=== PATIENT | male | born 1945 | race Hispanic/Latino ===

== ENCOUNTER 2020-05-29 12:35 | Inpatient (IN) | payer MEDICARE, OTHER ==
[2020-05-29 13:20] LABS: #Basophils 0.1 thou/uL (0.0-0.2); #Eosinphils 0.1 thou/uL (0.0-0.7); #Lymphocytes 1.8 thou/uL (1.20-3.40); #Neutrophils 12.1 thou/uL (1.40-6.50); %Basophils 0.6 % (0.0-1.0); %Eosinophils 0.5 % (0.0-10.0); %Lymphocytes 11.6 % (21.0-51.0); %Monocytes 6.9 % (0.0-10.0); %Neutrophils 80.4 % (42.0-75.0); Hemoglobin 15.6 g/dL (14.0-18.0); Mean Corpuscular HGB CONC 33.7 g/dL (32.0-36.0); Mean Corpuscular Hemoglobin 33.1 pg (27.0-31.0); Mean Corpuscular Volume 98.2 fL (78.0-98.0); RBC Distribution Width 15.2 % (11.5-14.5); Red Blood Cell (RBC) Count 4.71 mill/uL (4.70-6.10); White Blood Cell (WBC) Count 15.1 thou/uL (4.8-10.8)
[2020-05-29 13:36] LABS: ALT (SGPT) 47 U/L (8-55); AST (SGOT) 54 U/L (5-34); Albumin 4.4 g/dL (3.4-4.8); Alkaline Phosphatase 185 U/L (40-110); Anion Gap 25 mmol/L (10-20); BUN (Urea Nitrogen) 57 mg/dL (8.4-25.7); Bilirubin, Total 0.6 mg/dL (0.2-1.2); CK (CPK) 2046 U/L (30-200); Calc. Creatinine Clearance 0 mL/min (70-130); Calcium 9.6 mg/dL (7.8-10.44); Carbon Dioxide 19 mmol/L (23-31); Chloride 96 mmol/L (98-107); Estimated GFR-MDRD 6; Globulin 3.2 g/dL (2.4-3.5); Glucose 125 mg/dL (83-110); Potassium 4.3 mmol/L (3.5-5.1); Protein, Total 7.6 g/dL (5.8-8.1); Sodium 136 mmol/L (136-145)
--- NOTE | 2020-05-29 13:38 | RAD ---
PORTABLE CHEST: Date: 05/29/2020 PROVIDED CLINICAL HISTORY: Hypotension. FINDINGS: Comparison with 01/19/2020. Cardiac and mediastinal silhouette is within normal limits. No focal consolidation, pleural fluid, or pneumothorax apparent. Right IJ hemodialysis catheter is again demonstrated in similar position. IMPRESSION: No evidence for acute cardiopulmonary process. POS: [facility]
[2020-05-29 13:41] LABS: Anisocytosis SLIGHT = 6-15 cells (100X) (0-5/hpf); MDiff Complete? YES; Mean Platelet Volume 10.3 fL (7.4-10.4); Ovalocytes SLIGHT = 2-5 cells (100X) (0-1/hpf); Platelet Count 118 thou/uL (130-400); Platelet Morphology Comment Appears Decreased
--- NOTE | 2020-05-29 13:43 | RAD ---
TWO VIEWS LEFT SHOULDER: 05/29/20 PROVIDED CLINICAL HISTORY: Fall. FINDINGS: No evidence for fracture or other acute osseous abnormality. Narrowing of the subacromial space may r eflect rotator cuff insufficiency. Visualized left lung field appears clear. Acromioclavicular joint degenerative changes are seen. IMPRESSION: No evidence for an acute osseous abnormality. If there is persistent clinical concern, conservative m anagement and follow-up imaging are advised. POS: [facility]
--- NOTE | 2020-05-29 13:45 | CT ---
CT OF BRAIN PERFORMED WITHOUT CONTRAST ENHANCEMENT: 05/29/20 HISTORY: Head injury. Patient was found by nurse on floor. COMPARISON: 01/26/20 exam. There is moderate atrophy present. There is prominent decreased attenuation of the periventricular wh ite matter consistent with chronic ischemic white matter change. There are no signs of intracerebral hemorrhage or extra-axial fluid collections. Mastoid air cells and visualized sinuses appear clear. IMPRESSION: No acute intracranial abnormalities. POS: [facility]
[2020-05-29 14:00] LABS: CKMB 37.4 ng/mL (0-6.6)
[2020-05-29] MEDS ORDERED: Aspirin Chewable 81 MG TAB ONE (14:19)
[2020-05-29] MEDS ORDERED: Morphine 2 MG/ML SYRINGE SLOW IVP PRN (16:40)
[2020-05-29] MEDS ORDERED: Morphine 2 MG/ML SYRINGE ONE (16:48)
[2020-05-29 17:12] LABS: Troponin I 0.112 ng/mL (< 0.028)
[2020-05-29 17:13] VITALS: BMI 23.3
[2020-05-29] MEDS ORDERED: Acetaminophen 650 MG Suppository PR PRN (17:20)
[2020-05-29 19:17] LABS: Magnesium 2.2 mg/dL (1.6-2.6); Phosphorus 7.8 mg/dL (2.3-4.7)
[2020-05-29 19:51] LABS: CKMB 40.7 ng/mL (0-6.6)
[2020-05-29] MEDS ORDERED: Dextrose 5% in Water 1,000 ML IV PRN (20:01)
[2020-05-29] MEDS ORDERED: HumaLOG 300 UNITS/3 ML VIAL SC PRN ×2 (20:01)
[2020-05-29] MEDS ORDERED: Dextrose 50% Abboject 50 ML SYRINGE SLOW IVP PRN (20:01)
[2020-05-29 20:35] LABS: Troponin I 0.109 ng/mL (< 0.028)
--- NOTE | 2020-05-29 21:29 | HP ---
TIME OF ASSESSMENT: 1600 hours. CHIEF COMPLAINT: Syncope. HISTORY OF PRESENT ILLNESS: Information obtained from ED report and limited information obtained from the patient as he does have a history of dementia. Mr. Rizvi is a 74-year-old gentleman, who presents to the emergency department after having a fainting episode. The patient states that it happened at sometime this morning and was not witnessed and he believes he had lost consciousness for approximately 4 hours. When he came to, he is able to call for help. The patient denies any preceding symptoms that he can remember. He states he does not have much recollection of events prior to fainting. He recalls waking up on the floor on his back. He denies feeling unwell in the last several days. He was due to have dialysis today, however, missed dialysis this morning. He was brought by EMS and per ED reports, was found by his home health nurse. The patient states he was unable to get up and apparently had discomfort in the left shoulder. He therefore underwent an x-ray of the left shoulder, which showed no evidence for any acute abnormality. In the ED, he had an EKG done, which showed normal sinus rhythm with a heart rate of 74. There were questionable ST changes involving the inferior leads as well as V3 through V6. A repeat EKG was done and showed normal sinus rhythm with a heart rate of 92. There were changes consistent with early repolarization. No acute changes. He had a chest x-ray done, which showed no acute cardiopulmonary process. CT of the head was done as well showing no acute intracranial abnormalities. Laboratory studies done in the emergency department were notable for a white count of 15.1, hemoglobin 15.6, hematocrit 46.2, platelets 118, neutrophils 80.4. Sodium 136, potassium 4.3, BUN 57, creatinine 8.37, GFR 6, calcium 9.6, phosphorus 7.8, magnesium 2.2, total bilirubin 0.6, AST 54, ALT 47, alkaline phosphatase 185, CK 2046, CK-MB was 37.4, troponin I 0.093, BNP 21.5. The patient is being admitted for rhabdomyolysis and syncope workup as well as workup of the indeterminate troponin. REVIEW OF SYSTEMS: He denies again having any fevers, chills, or sweats. Denies any abdominal pain or cramping. Reports having regular bowel movements and denies any urinary symptoms. He states though he has end-stage renal disease, he does still make little urine and has not noted any changes. Denies hematuria. No chest pain, palpitations, or shortness of breath. All other review of systems are negative. PAST MEDICAL HISTORY: 1. CHF. 2. Type 2 diabetes mellitus. 3. Hypothyroidism. 4. BPH. 5. Hyperlipidemia. 6. Hypertension. 7. Dementia. 8. End-stage renal disease, on hemodialysis Monday, Monday, Monday. 9. Anxiety. 10. Depression. PAST SURGICAL HISTORY: . SOCIAL HISTORY: The patient denies any tobacco use, alcohol consumption, or illicit drug use. ALLERGIES: NO KNOWN DRUG ALLERGIES. CURRENT MEDICATIONS: 1. Trazodone. 2. Lipitor. 3. Pramipexole. 4. Lorazepam. 5. Coreg. 6. Vitamin D3. 7. Tamsulosin. 8. Bupropion HCL. 9. Hydralazine. 10. Losartan. 11. Memantine. 12. Nifedipine. PHYSICAL EXAMINATION: GENERAL: The patient is resting comfortably on the stretcher. He is in no acute distress. The patient did experience what looked like chills during the examination. VITAL SIGNS: Temperature 98.2, pulse 90, blood pressure 115/77, respirations 21, and O2 saturation 97% on room air. HEENT: Normocephalic and atraumatic. Pupils are equal, round, and reactive to light. Sclerae without icterus. Oropharynx is clear. NECK: Supple. LUNGS: Clear to auscultation bilaterally without any wheezes, rales, or rhonchi. CARDIAC: Regular rate and rhythm. ABDOMEN: Soft, nontender, nondistended. Normoactive bowel sounds present. No guarding or rigidity. No renal angle tenderness. EXTREMITIES: Peripheral pulses strong and equal bilaterally. No evidence of edema. No calf tenderness. SKIN: Warm and dry. NEUROLOGIC: Alert and oriented x2. Speech is normal. No neuro deficits on exam. Extraocular movements intact. Facial sensation and movements intact. No extremity weakness or numbness. INVESTIGATIONS: As mentioned above in HPI. IMPRESSION AND PLAN: Mr. Rizvi is a 74-year-old gentleman, who was brought into the emergency department after being found by the home health nurse on the ground. The patient states he had a syncopal episode at some time this morning. He missed dialysis due to this. He denies having any complaints at this time; however, he does have known dementia, therefore not a reliable historian. He is being admitted for management of the following; 1. Rhabdomyolysis. The patient had a CK of 2045. He is a dialysis patient; therefore, has received 1 L of normal saline only. We will recheck CK with morning labs. Further fluid administration to be determined by Nephrology. 2. Left shoulder pain. The patient denies having any pain at this present time. X-ray done is unremarkable. 3. Chills. He did experience chills during his examination, but again denies having any complaints. We will go ahead and obtain urinalysis. Chest x-ray was unremarkable. We will also obtain testing for COVID as discussed with Dr. Garcia. 4. Elevated troponin. Likely associated with his end-stage renal disease. No previous to compare to. We will continue to trend troponins and he will remain on cardiac monitoring. 5. Syncope. We will obtain an echo, carotid Dopplers and orthostatic blood pressures. 6. End-stage renal disease, on hemodialysis. Again, the patient missed dialysis earlier today. Dr. Gacria has discussed the case with Dr. Cedillo, who will arrange dialysis for the patient. Consultation was placed. 7. Hypertension. Monitor blood pressure. We will hold antihypertensives for now given blood pressures on the low side. 8. Type 2 diabetes mellitus. Monitor blood glucose and initiate sliding scale. Obtain bedside screening for dysphagia before clearing him for meals to ensure the patient is not at risk for aspiration. 9. Hypothyroidism. We will check TSH. Reconcile home medications once verified. 10. Dementia. We will resume memantine, which he takes at home. 11. Gastrointestinal prophylaxis. We will start him on famotidine. 12. Deep venous thrombosis prophylaxis. Mechanical SCDs. 13. Code status: Unable to discuss at this time. Medical power of real estate associate attorney, unknown. The patient's case was discussed with Dr. Garcia, who agrees with the plan of care as described above. Job ID: [id number]
[2020-05-29] MEDS: Sodium Chloride 0.9% 1,000 ML IV SCH (23:31)
--- NOTE | 2020-05-29 23:50 | ULT ---
BILATERAL CAROTID DUPLEX ULTRASOUND: HISTORY: Syncope TECHNIQUE: Grayscale, color-flow and spectral Doppler ultrasound imaging of the extracranial carotid artery syst ems was performed bilaterally. FINDINGS: Minimal atherosclerotic calcic lesions are seen in the region of the carotid bulbs. There is a soft a therosclerotic plaque seen in the distal left common carotid artery. There is no hemodynamically significant stenosis in the bilateral internal carotid arteries according to the peak systolic velocities and the ICA/CCA ratios. The peak systolic velocity in the right ICA measures 33.3 cm/s. The peak systolic velocity in the left ICA measures 39.4 cm/s. The right IC A/CCA ratio is 0.62, and the left ICA/CCA ratio is 0.37. Vertebral arteries: Antegrade flow is demonstrated in the vertebral arteries bilaterally. IMPRESSION: No hemodynamically significant stenosis in the bilateral internal carotid arteries. Prominent soft atherosclerotic plaque in the distal left common carotid artery.
[2020-05-30 05:23] LABS: #Basophils 0.1 thou/uL (0.0-0.2); #Eosinphils 0.3 thou/uL (0.0-0.7); #Lymphocytes 1.3 thou/uL (1.20-3.40); #Monocytes 0.7 thou/uL (0.11-0.59); #Neutrophils 7.6 thou/uL (1.40-6.50); %Basophils 0.7 % (0.0-1.0); %Eosinophils 2.7 % (0.0-10.0); %Lymphocytes 12.8 % (21.0-51.0); %Monocytes 7.3 % (0.0-10.0); %Neutrophils 76.5 % (42.0-75.0); Mean Corpuscular HGB CONC 32.1 g/dL (32.0-36.0); Mean Corpuscular Hemoglobin 31.4 pg (27.0-31.0); Mean Corpuscular Volume 97.7 fL (78.0-98.0); Mean Platelet Volume 10.2 fL (7.4-10.4); Platelet Count 112 thou/uL (130-400); RBC Distribution Width 15.2 % (11.5-14.5); Red Blood Cell (RBC) Count 4.47 mill/uL (4.70-6.10); White Blood Cell (WBC) Count 9.9 thou/uL (4.8-10.8)
[2020-05-30 05:50] LABS: Albumin 3.8 g/dL (3.4-4.8); Anion Gap 22 mmol/L (10-20); BUN (Urea Nitrogen) 66 mg/dL (8.4-25.7); BUN/Creatinine Ratio 7.07; CK (CPK) 914 U/L (30-200); Calc. Creatinine Clearance 6 mL/min (70-130); Calcium 8.8 mg/dL (7.8-10.44); Carbon Dioxide 20 mmol/L (23-31); Chloride 97 mmol/L (98-107); Estimated GFR-MDRD 6; Glucose 111 mg/dL (83-110); Phosphorus 8.1 mg/dL (2.3-4.7); Potassium 4.5 mmol/L (3.5-5.1); Sodium 134 mmol/L (136-145)
--- NOTE | 2020-05-30 05:59 | CON ---
DATE OF CONSULTATION: 05/29/2020 SERVICE: Nephrology. REASON FOR CONSULTATION: End-stage renal disease management. REQUESTING PHYSICIAN: Dr. Garcia. CHIEF COMPLAINT: Syncope and collapse. HISTORY OF PRESENT ILLNESS: A 74-year-old male with known history of diabetes, hypertension, end-stage renal disease, on hemodialysis, Monday, Monday, and Monday, who was brought in by EMS after he was found on the floor of his house by home health nurse. The patient reportedly had a fall, but he was unable to provide much significant history. He has no memory of event leading up to the fall. He reported poor oral intake in the last several days. Home health nurse reportedly found the patient on the floor of his house and he was unable to get up. When EMS arrived, the patient was found to be hypotensive with systolic blood pressure in the 80s. He was treated with fluids and was subsequently brought to the ER, where initial systolic blood pressure was around 100-110, and later improved to 120s to 140s. The patient complained of left shoulder pain, but denied nausea, vomiting, diarrhea, chest pain, or shortness of breath. He also denied dysuria. He also denied abdominal pain, fever, or chills. The patient does not make urine anymore. The patient's regular bricklayer's assistant is Dr. Trinidad of [facility], and the patient dialyzes regularly at [facility]. He reports feeling better. He denied focal weakness, headache, or inability to move any body part. PAST MEDICAL HISTORY: 1. Chronic congestive heart failure. 2. Hypothyroidism. 3. Dementia. 4. Anxiety and depression. 5. End-stage renal disease, on hemodialysis. 6. Type 2 diabetes mellitus. 7. BPH. 8. Hyperlipidemia. 9. Hypertension. PAST SURGICAL HISTORY: Could not be obtained due to the patient's condition. FAMILY HISTORY: Unable to obtain due to the patient's condition. SOCIAL HISTORY: The patient lives with nephew. He is a former chronic alcohol user, but is currently sober. He denied any recreational drug use. He is a former smoker. ALLERGIES: NO KNOWN DRUG ALLERGIES REPORTED. HOME MEDICATIONS: 1. Trazodone. 2. Lipitor. 3. Pramipexole. 4. Lorazepam. 5. Coreg. 6. Vitamin D3. 7. Tamsulosin. 8. Bupropion. 9. Hydralazine. 10. Losartan. 11. Memantine. 12. Nifedipine. REVIEW OF SYSTEMS: This is grossly limited due to the patient's condition. However, the patient denied chest pain, fever, or shortness of breath. Other pertinent positives and negatives were included in the history of present illness. Otherwise, review of system was negative. PHYSICAL EXAMINATION: VITAL SIGNS: Temperature is 98.2, pulse 90, respiratory rate 21, SpO2 97% on room air, blood pressure is 115/77. GENERAL: Fatigued elderly male, in no obvious distress. Afebrile. Anicteric. Acyanotic. HEENT: Normocephalic, atraumatic. Oral mucosa is moist. Pupils are reacting to light. NECK: Supple with no JVD. CARDIOVASCULAR: Regular rhythm and rate with normal heart sounds 1 and 2. RESPIRATORY: Good air entry bilaterally with no crackle or rhonchi or use of accessory muscles. GI: Abdomen is full, soft, nontender, nondistended with normal bowel sounds. MUSCULOSKELETAL/EXTREMITIES: Grossly normal looking, atraumatic with no obvious edema or erythema. SKIN: Warm and dry with no obvious rash or erythema. CEMENT SIDE LASTER: Conscious and alert. Oriented x2 at least. Memory lapse is noted. Cranial nerves 2 through 12 are grossly intact. The patient moves all extremities, but weakly. DIAGNOSTIC DATA: CBC showed WBC count of 15.1, hemoglobin of 15.6, MCV of 98.2, platelet of 118. Chemistry showed sodium 136, potassium 4.3, chloride 96, CO2 19, BUN 57, creatinine 8.37, glucose 125, calcium 9.6, total bilirubin 0.6, AST 54, ALT 47, alkaline phosphatase 185, total protein 7.6, albumin 12.4. Initial cardiac markers showed CK 2046, CK-MB 37.4, and troponin 0.093. Serial troponin showed a slowly trending up troponin level, from initial level of 0.093 to a peak of 0.112. Phosphorus is 7.8 and magnesium is 2.2. Left shoulder x-ray showed no evidence of acute osseous abnormality. Chest x-ray showed cardiac and mediastinal silhouettes within normal limits with no focal consolidation, pleural effusion, or pneumothorax. Right IJ hemodialysis catheter noted. CT scan of the brain showed moderate atrophy as well as prominent decreased attenuation of the periventricular white matter consistent with chronic ischemic white matter change. There are no signs of intracerebral hemorrhage and/or extra-axial fluid collection. ASSESSMENT: 1. End-stage renal disease, on hemodialysis, Monday, Monday, Monday. Last hemodialysis was on May 27, two days ago. 2. Volume status: The patient is euvolemic, if not clinically dry. 3. Metabolic acidosis: Due to end-stage renal disease. 4. Electrolytes: Acceptable with potassium of 4.3. 5. Rhabdomyolysis: Due to fall and lying down on same place. CPK is 2046. 6. Elevated troponin: Most likely, related to rhabdomyolysis. Cardiac anomaly cannot be ruled out, however. The patient also denied chest pain. 7. Presumed syncope and collapse. The patient was on the floor and had no idea as to how he was on the floor. 8. Transient hypotension: The patient is on several antihypertensives. Orthostatic hypotension is a concern. PLAN: 1. We will hold all antihypertensives. 2. Agree with gentle IV hydration. 3. We will plan on dialyzing the patient in the morning to allow time for hemodynamics to stabilize. 4. We will also get orthostatic vitals. 5. Further treatment to follow depending on hospital course. Many thanks for involving us in the care of this patient. We will follow along with you. Job ID: [id number]
[2020-05-30] MEDS: Sevelamer Carbonate 800 MG TAB PO SCH ×3 (07:30→19:08)
[2020-05-30] MEDS: Aspirin 81 mg Enteric Coated Tablet PO SCH (07:31)
[2020-05-30] MEDS: Megestrol Acetate 800 MG/20 ML UDCUP PO SCH (07:31)
[2020-05-30] MEDS ORDERED: Heparin 10,000 UNITS/ 10 ML VIAL ONE (11:14)
[2020-05-30] MEDS: Lorazepam 0.5 MG TAB PO PRN (11:22)
--- NOTE | 2020-05-30 12:01 | PRG ---
DATE OF SERVICE: 05/30/2020 SERVICE: Nephrology. SUBJECTIVE: A 74-year-old being followed for end-stage renal disease management. The patient was admitted after he was found on the floor of his home by the home health nurse. The patient reportedly fell and was unable to get up. No new problem. Still complaining of poor appetite. The patient has remained afebrile. Denied nausea or vomiting. OBJECTIVE: VITAL SIGNS: Temperature 99, pulse 94, respiratory rate 16, SpO2 of 96% on room air, blood pressure is 142/78. GENERAL: Fatigued elderly male, in no distress. Afebrile. Anicteric. Acyanotic. HEENT: Normocephalic and atraumatic. Oral mucosa is moist. CARDIOVASCULAR: Regular rhythm and rate. Normal heart sounds one and two. RESPIRATORY: Fair air entry bilaterally. No obvious crackle or rhonchi. GI: Flat, soft, nontender, nondistended with normal bowel sounds. EXTREMITIES: Grossly normal looking with no obvious edema or erythema. IC DESIGNER CUSTOM: Conscious and alert, oriented to person at least. Some memory lapses noted. Moves all extremities. Cranial nerves 2 through 12 are grossly intact. DIAGNOSTIC DATA: CBC showed WBC count of 9.9, hemoglobin of 14, MCV of 97.7, platelets of 112. Chemistry showed sodium 134, potassium 4.5, chloride 97, CO2 of 20, BUN 66, creatinine 9.33, glucose 111, calcium 8.8, phosphorus 8.1, alkaline phosphatase 9.4, albumin 3.8. ASSESSMENT: 1. End-stage renal disease, on hemodialysis, Monday, Monday, Monday. Last hemodialysis was on May 27, 2020. The patient was supposed to have dialysis yesterday that was held due to hemodynamic instability. We will dialyze the patient today with 3K bath. 2. Hyperphosphatemia: We will start phosphate binder. 3. Presumed syncope and collapse. The patient initially had hypotension. We will continue to hold antihypertensives for now. 4. Rhabdomyolysis: Due to trauma/fall. CPK levels are down with a normal saline. 5. Poor appetite: We will start Megace. 6. Other treatment as per primary attending. Further treatment to follow depending on hospital course. Hemodialysis Procedure Note. Seen and evaluated during hemodialysis. Tolerating treatment well. Dialysis order; HD for 3 hours, 3K bath, Hco3 37, Na 137, UF as tolerated. Job ID: [id number] MTDD
[2020-05-30 12:28] LABS: SARS-CoV-2 MS2 Positive; SARS-CoV-2 N Gene Negative; SARS-CoV-2 S Gene Negative; SARS-CoV-2 orf1ab Negative
--- NOTE | 2020-05-30 14:24 | PDOC.HOSPP ---
- Subjective Encounter Date: 05/30/20 Encounter Time: 14:22 Subjective: Mr. Rizvi was seen today in follow-up of syncope. He does not have any complaints. He says he does not remember the events of last yesterday. - Objective Vital Signs & Weight: Vital Signs (12 hours) Temp Pulse Resp BP Pulse Ox 05/30/20 11:41 99.4 F 95 20 134/74 95 05/30/20 07:55 99 F 94 16 142/78 H 96 05/30/20 02:51 97.6 F 99 18 114/62 100 Weight Weight 143 lb 4 oz I&O: 05/29/20 05/30/20 05/31/20 06:59 06:59 06:59 Intake Total 1180 Output Total 0 Balance 1180 Result Diagrams: 05/30/20 04:55 05/30/20 04:55 Additional Labs: Accuchecks 05/30/20 05/30/20 05/29/20 11:39 03:06 23:32 POC Glucose 127 H 92 84 Hospitalist ROS - Medication Medications: Active Medications Generic Name Dose Route Start Last Admin Trade Name Freq PRN Reason Stop Dose Admin Aspirin 81 mg 05/30/20 09:00 05/30/20 07:31 Ecotrin PO 81 mg DAILY DC Administration Lorazepam 1 mg 05/30/20 11:12 05/30/20 11:22 Ativan PO 1 mg BIDPRN PRN Administration Anxiety Megestrol Acetate 400 mg 05/30/20 09:00 05/30/20 07:31 Megace PO 400 mg DAILY DC Administration Morphine Sulfate 2 mg 05/29/20 16:40 05/29/20 16:50 Morphine SLOW IVP 2 mg Q4H PRN Administration Moderate Pain (4-6) Pantoprazole Sodium 40 mg 05/30/20 09:00 05/30/20 07:30 Protonix PO 40 mg DAILY DC Administration Sevelamer Carbonate 800 mg 05/30/20 08:00 05/30/20 13:00 Renvela PO 800 mg TID-WM DC Administration - Exam Eye: PERRL Heart: RRR, no murmur, no gallops, no rubs, normal peripheral pulses Respiratory: CTAB, no wheezes, no rales, no ronchi, normal chest expansion, no tachypnea Gastrointestinal: soft, non-tender, non-distended, normal bowel sounds, no palpable masses Extremities: no cyanosis, no edema Hosp A/P (1) Syncope Code(s): R55 - SYNCOPE AND COLLAPSE Status: Acute (2) End stage renal disease on dialysis Code(s): N18.6 - END STAGE RENAL DISEASE; Z99.2 - DEPENDENCE ON RENAL DIALYSIS Status: Acute (3) Diabetes mellitus type 2 in nonobese Code(s): E11.9 - TYPE 2 DIABETES MELLITUS WITHOUT COMPLICATIONS Status: Chronic (4) Hypertension Code(s): I10 - ESSENTIAL (PRIMARY) HYPERTENSION Status: Chronic - Plan * Syncope- ? etiology- may have been due to dehydration- patient had received some fluids, prior to orthostatic blood pressures were taken. * Still await Echo results * HTN- blood pressure is stable * DM-blood glucose is stable * He likely will need a stress test to rule out potential ischemic heart disease as a possibility- will order for tomorrow. If this is negative, then may need event monitor and possibly Neurological work-up as well. ( however this can be done outpatient). * COVID screen was negative. He denies having any known exposures to COVID-19, denies having any family members infected with COVID-19, nor does he have any symptoms attributed to it. Will discontinue isolation. He could be false negative and asymptomatic.
[2020-05-30] MEDS: Sodium Chloride 0.9% 1,000 ML IV SCH (14:38)
[2020-05-30 15:24] LABS: Blood, Urine Large (Negative); Glucose, Urine (Dipstick) Negative (Negative); Leukocyte Large (Negative); Specific Gravity, Urine 1.015 (1.005-1.030); pH, Urine 6.5 (5.0-9.0)
[2020-05-30 15:25] LABS: Bilirubin Unable to Interpret (Negative); Clarity Cloudy (Clear); Ketone, Urine Unable to Interpret mg/dL (Negative); Nitrite Unable to Interpret (Negative); Protein, Urine (Dipstick) Unable to Interpret mg/dL (Neg-Trace); Urobilinogen UNABLE TO INTERPRET mg/dL (Less than 2)
[2020-05-30 15:27] LABS: Bacteria/HPF 2+ HPF (None Seen); RBC/HPF Greater than 50 HPF (0-3); Squamous Epithelial None Seen HPF (0-3); WBC/HPF Greater than 50 HPF (0-3)
[2020-05-30 15:28] LABS: Urine Culture Reflex Yes Yes
[2020-05-30] MEDS: Pramipexole Di-HCl 0.25 MG TAB PO SCH (20:32)
[2020-05-30] MEDS: traMADol HCl 50 MG TAB PO PRN (20:32)
[2020-05-31] MEDS: Lorazepam 0.5 MG TAB PO PRN ×2 (00:15→13:58)
[2020-05-31] MEDS: Acetaminophen 325 MG TAB PO PRN ×3 (03:30→20:29)
[2020-05-31 04:35] LABS: #Eosinphils 0.3 thou/uL (0.0-0.7); #Lymphocytes 1.5 thou/uL (1.20-3.40); #Monocytes 0.6 thou/uL (0.11-0.59); #Neutrophils 6.2 thou/uL (1.40-6.50); %Basophils 0.5 % (0.0-1.0); %Eosinophils 3.3 % (0.0-10.0); %Monocytes 7.3 % (0.0-10.0); %Neutrophils 71.9 % (42.0-75.0); Hemoglobin 13.8 g/dL (14.0-18.0); Mean Corpuscular HGB CONC 33.5 g/dL (32.0-36.0); Mean Corpuscular Hemoglobin 32.3 pg (27.0-31.0); Mean Corpuscular Volume 96.4 fL (78.0-98.0); Platelet Count 113 thou/uL (130-400); Red Blood Cell (RBC) Count 4.28 mill/uL (4.70-6.10); White Blood Cell (WBC) Count 8.6 thou/uL (4.8-10.8)
[2020-05-31 04:43] LABS: Anion Gap 18 mmol/L (10-20); BUN (Urea Nitrogen) 36 mg/dL (8.4-25.7); Calc. Creatinine Clearance 9 mL/min (70-130); Calcium 9.2 mg/dL (7.8-10.44); Carbon Dioxide 23 mmol/L (23-31); Chloride 98 mmol/L (98-107); Estimated GFR-MDRD 9; Glucose 91 mg/dL (83-110); Potassium 3.5 mmol/L (3.5-5.1); Sodium 135 mmol/L (136-145)
--- NOTE | 2020-05-31 11:17 | PRG ---
DATE OF SERVICE: 05/31/2020 SERVICE: Nephrology. SUBJECTIVE: A 74-year-old male with end-stage renal disease, on hemodialysis, admitted after he was found on the floor after a presumed syncope and collapse. Had dialysis yesterday, which was well tolerated. No new problem. Oral intake is improved. OBJECTIVE: VITAL SIGNS: Temperature 98.1, pulse 77, respiratory rate 18, SpO2 of 96% on room air, and blood pressure 161/84. GENERAL: Comfortable elderly male, in no obvious distress. Fatigued, but afebrile. HEENT: Normocephalic, atraumatic. Oral mucosa is moist. CARDIOVASCULAR: Regular rhythm and rate with normal heart sounds 1 and 2. RESPIRATORY: Fair air entry bilaterally with no obvious crackle or rhonchi or use of accessory muscles. GI: Full, soft, nontender, nondistended with normal bowel sounds. EXTREMITIES: Grossly normal looking, atraumatic with no obvious edema or erythema. MISSILE PAD MECHANIC: Conscious and awake. Oriented to person and place at least. Cranial nerves II through XII are grossly intact. The patient moves all extremities. Memory lapses noted. DIAGNOSTIC DATA: CBC showed WBC count of 8.6, hemoglobin of 13.8, platelets of 113. Chemistry showed sodium 135, potassium 3.5, chloride 98, CO2 of 23, BUN 36, creatinine 6.39, glucose 91, and calcium 9.2. ASSESSMENT: 1. End-stage renal disease, on hemodialysis. Last dialysis was yesterday, April 30. We will plan on dialyzing the patient tomorrow in line with outpatient dialysis schedule. 2. Rhabdomyolysis: Related to fall. CPK is down to 9000 yesterday. Expected to have gone down even further after dialysis. 3. Hypertension: Blood pressure is currently well controlled. Due to syncope, antihypertensives were held. We will monitor blood pressure closely. 4. Poor appetite. Oral intake and appetite are improving with Megace. 5. Syncope and collapse: Evaluation as per primary attending. Job ID: [id number]
[2020-05-31] MEDS ORDERED: ADENOSINE 60 MG/20 ML VIAL ONE (11:24)
[2020-05-31] MEDS: Aspirin 81 mg Enteric Coated Tablet PO SCH (11:36)
[2020-05-31] MEDS: Sevelamer Carbonate 800 MG TAB PO SCH ×4 (11:36→18:10)
[2020-05-31] MEDS: Megestrol Acetate 800 MG/20 ML UDCUP PO SCH (11:36)
[2020-05-31] MEDS: traMADol HCl 50 MG TAB PO PRN (13:55)
--- NOTE | 2020-05-31 14:30 | NM ---
NUCLEAR MEDICINE MYOCARDIAL PERFUSION SCAN: History: Syncope, dyslipidemia, diabetes, end stage renal disease. The examination was performed using 30.4 mCi Technetium 99M Sestamibi on stress and 9.1 mCi Technetiu m 99M Sestamibi on the resting images. FINDINGS: This shows some minimal thinning in the inferior wall which is unchanged between the stress and rest views. WALL MOTION: Symmetric contractility to the ventricle. LEFT VENTRICULAR EJECTION FRACTION: 56% IMPRESSION: No evidence of ischemic change. Questionable area of some mild scarring to the inferior wall. POS: [facility]
--- NOTE | 2020-05-31 14:33 | PDOC.HOSPP ---
- Subjective Encounter Date: 05/31/20 Encounter Time: 14:32 Subjective: Mr. Rizvi was seen today in for syncope. His only complaint is that of back pain. He says this is chronic and he has had surgery in the past. He says he takes Lortab at home for this. - Objective Vital Signs & Weight: Vital Signs (12 hours) Temp Pulse Resp BP BP BP Pulse Ox 05/31/20 12:00 98.0 F 78 18 156/86 H 98 05/31/20 08:00 98.1 F 77 18 161/84 H 96 05/31/20 03:25 98.6 F 99 16 137/82 96 Weight Weight 142 lb 12.8 oz I&O: 05/30/20 05/31/20 06/01/20 06:59 06:59 06:59 Intake Total 1180 120 Output Total 0 50 Balance 1180 70 Result Diagrams: 05/31/20 04:04 05/31/20 04:04 Additional Labs: Accuchecks 05/31/20 05/31/20 05/30/20 11:17 05:41 21:39 POC Glucose 139 H 101 102 Hospitalist ROS - Medication Medications: Active Medications Generic Name Dose Route Start Last Admin Trade Name Freq PRN Reason Stop Dose Admin Acetaminophen 650 mg 05/29/20 17:20 05/31/20 10:20 Tylenol PO 650 mg Q4H PRN Administration Headache/Fever/Mild Pain (1-3) Aspirin 81 mg 05/30/20 09:00 05/31/20 11:36 Ecotrin PO 81 mg DAILY DC Administration Lorazepam 1 mg 05/30/20 11:12 05/31/20 13:58 Ativan PO 1 mg BIDPRN PRN Administration Anxiety Megestrol Acetate 400 mg 05/30/20 09:00 05/31/20 11:36 Megace PO 400 mg DAILY DC Administration Morphine Sulfate 2 mg 05/29/20 16:40 05/29/20 16:50 Morphine SLOW IVP 2 mg Q4H PRN Administration Moderate Pain (4-6) Pantoprazole Sodium 40 mg 05/30/20 09:00 05/31/20 11:36 Protonix PO 40 mg DAILY DC Administration Pramipexole Dihydrochloride 0.25 mg 05/30/20 21:00 05/30/20 20:32 Mirapex PO 0.25 mg HS DC Administration Sevelamer Carbonate 800 mg 05/30/20 08:00 05/31/20 11:43 Renvela PO 800 mg TID-WM DC Administration Tramadol HCl 50 mg 05/30/20 19:57 05/31/20 13:55 Ultram PO 50 mg Q12H PRN Administration Moderate Pain (4-6) - Exam Eye: PERRL, anicteric sclera Heart: RRR, no murmur, no gallops, no rubs, normal peripheral pulses Respiratory: CTAB, no wheezes, no rales, no ronchi, normal chest expansion Gastrointestinal: soft, non-tender, non-distended, normal bowel sounds, no palpable masses Extremities: no cyanosis, no edema Hosp A/P (1) Syncope Code(s): R55 - SYNCOPE AND COLLAPSE Status: Acute (2) End stage renal disease on dialysis Code(s): N18.6 - END STAGE RENAL DISEASE; Z99.2 - DEPENDENCE ON RENAL DIALYSIS Status: Acute (3) Diabetes mellitus type 2 in nonobese Code(s): E11.9 - TYPE 2 DIABETES MELLITUS WITHOUT COMPLICATIONS Status: Chronic (4) Hypertension Code(s): I10 - ESSENTIAL (PRIMARY) HYPERTENSION Status: Chronic - Plan * Syncope- ? etiology-stress test is done, but results pending * Echo- is being done now, so results are not likely until tomorrow * HTN- blood pressure is a bit elevated= will monitor, but continue to current medications * DM-blood glucose is stable * ESRD- dialysis as per Nephrology * Back pain- acute on chronic- symptom management
[2020-05-31] MEDS: Pramipexole Di-HCl 0.25 MG TAB PO SCH (20:28)
[2020-06-01] MEDS: Lorazepam 0.5 MG TAB PO PRN (00:01)
[2020-06-01] MEDS ORDERED: HYDROcodone/Acetaminophen 5/325 mg Tablet PO PRN (07:53)
[2020-06-01] MEDS ORDERED: Losartan 25 MG TAB PO SCH (09:00)
[2020-06-01] MEDS ORDERED: Tamsulosin HCl 0.4 MG CAP PO SCH (09:00)
[2020-06-01] MEDS ORDERED: Bupropion 150 MG XL TAB PO SCH (09:00)
[2020-06-01] MEDS ORDERED: Carvedilol 6.25 MG TAB PO SCH (09:00)
[2020-06-01] MEDS ORDERED: Heparin 10,000 UNITS/ 10 ML VIAL ONE (09:27)
--- NOTE | 2020-06-01 10:13 | PRG ---
DATE OF SERVICE: 06/01/2020 SERVICE: Nephrology. SUBJECTIVE: A 74-year-old male with end-stage renal disease, who was admitted after he was found on the floor from presumed syncope and collapse. Nephrology is seeing the patient for end-stage renal disease management and hypertension. The patient reports feeling better. Oral intake has improved. Feeling stronger as well. Denied nausea, vomiting, or abdominal pain. OBJECTIVE: VITAL SIGNS: Temperature 98.2, pulse 91, respiratory rate 16, SpO2 of 96 on room air, and blood pressure is 177/95. GENERAL: Comfortable elderly male, in no distress. Afebrile. Anicteric. Acyanotic. HEENT: Normocephalic and atraumatic. Oral mucosa is moist. CARDIOVASCULAR: Regular rhythm and rate with normal heart sounds 1 and 2. RESPIRATORY: Fair air entry bilaterally with no obvious crackles or use of accessory muscles. GI: Full, soft, nontender, and nondistended with normal bowel sounds. EXTREMITIES: Grossly normal looking and atraumatic with no edema or erythema. YARN FINISHER: Conscious and alert, oriented x3. Cranial nerves 2 through 12 are grossly intact. Some memory lapses noted. DIAGNOSTIC DATA: Chemistry, yesterday showed sodium 135, potassium 3.5, chloride 98, CO2 of 23, BUN 36, creatinine 6.39, glucose 91, and calcium 9.2. ASSESSMENT: 1. End-stage renal disease, on hemodialysis. We will dialyze the patient today in line with outpatient schedule. 2. Hypertension: The patient had transient hypotension initially on presentation, hence antihypertensives were held. Blood pressure is beginning to appreciate. We will monitor closely and re-evaluate after hemodialysis with a view to start on some antihypertensives. 3. Poor appetite/oral intake: Improving with Megace. Continue same. 4. Syncope and collapse: Evaluation as per primary attending. 5. Rhabdomyolysis: Improved. 6. Mild hyponatremia: Due to poor free water excretion. We will treat with hemodialysis. HEMODIALYSIS PROCEDURE NOTE: The patient was seen during hemodialysis. Vitals showed blood pressure 167/101. So far tolerating hemodialysis well. Dialysis order: 4 hours of treatment with 4K bath. Blood flow 400, dialysate flow 600 with UF as tolerated. Job ID: [id number]
[2020-06-01] MEDS ORDERED: NIFEdipine XL 60 MG TAB PO SCH (12:00)
--- NOTE | 2020-06-01 12:15 | PDOC.HOSPP ---
- Subjective Encounter Date: 06/01/20 Encounter Time: 12:13 Subjective: Mr. Rizvi was seen today in follow-up of Syncope. He does not have any complaints. - Objective Vital Signs & Weight: Vital Signs (12 hours) Temp Pulse Resp BP Pulse Ox 06/01/20 04:41 98.2 F 91 16 177/95 H 96 Weight Weight 146 lb 9.718 oz I&O: 05/31/20 06/01/20 06/02/20 06:59 06:59 06:59 Intake Total 120 960 Output Total 50 Balance 70 960 Result Diagrams: 05/31/20 04:04 05/31/20 04:04 Additional Labs: Accuchecks 06/01/20 05/31/20 05/31/20 05:23 20:43 16:38 POC Glucose 75 135 H 93 Hospitalist ROS - Medication Medications: Active Medications Generic Name Dose Route Start Last Admin Trade Name Freq PRN Reason Stop Dose Admin Acetaminophen 650 mg 05/29/20 17:20 05/31/20 20:29 Tylenol PO 650 mg Q4H PRN Administration Headache/Fever/Mild Pain (1-3) Aspirin 81 mg 05/30/20 09:00 05/31/20 11:36 Ecotrin PO 81 mg DAILY DC Administration Lorazepam 1 mg 05/30/20 11:12 06/01/20 00:01 Ativan PO 1 mg BIDPRN PRN Administration Anxiety Megestrol Acetate 400 mg 05/30/20 09:00 05/31/20 11:36 Megace PO 400 mg DAILY DC Administration Morphine Sulfate 2 mg 05/31/20 22:34 06/01/20 11:13 Morphine Sulfate SLOW IVP 2 mg Q4H PRN Administration Breakthrough Pain Pantoprazole Sodium 40 mg 05/30/20 09:00 05/31/20 11:36 Protonix PO 40 mg DAILY DC Administration Pramipexole Dihydrochloride 0.25 mg 05/30/20 21:00 05/31/20 20:28 Mirapex PO 0.25 mg HS DC Administration Sevelamer Carbonate 800 mg 05/30/20 08:00 05/31/20 18:10 Renvela PO 800 mg TID-WM DC Administration Sodium Chloride 10 ml 05/29/20 17:20 06/01/20 04:42 Flush - Normal Saline IVF 10 ml PRN PRN Administration Saline Flush Tramadol HCl 50 mg 05/30/20 19:57 05/31/20 13:55 Ultram PO 50 mg Q12H PRN Administration Moderate Pain (4-6) - Exam Eye: PERRL, anicteric sclera Heart: RRR, no murmur, no gallops, no rubs, normal peripheral pulses Respiratory: CTAB, no wheezes, no rales, no ronchi, normal chest expansion Gastrointestinal: soft, non-tender, non-distended, normal bowel sounds Extremities: no cyanosis Hosp A/P (1) Syncope Code(s): R55 - SYNCOPE AND COLLAPSE Status: Acute (2) End stage renal disease on dialysis Code(s): N18.6 - END STAGE RENAL DISEASE; Z99.2 - DEPENDENCE ON RENAL DIALYSIS Status: Acute (3) Diabetes mellitus type 2 in nonobese Code(s): E11.9 - TYPE 2 DIABETES MELLITUS WITHOUT COMPLICATIONS Status: Chronic (4) Hypertension Code(s): I10 - ESSENTIAL (PRIMARY) HYPERTENSION Status: Chronic - Plan * Syncope- ? Etiology- his stress test and Echo was unremarkable. It is noted that he is on multiple sedating medications * It is possible that polypharmacy in this elderly gentleman may have contributed to his presentation * HTN- blood pressure is a bit elevated- will monitor, but continue to current medications * DM-blood glucose is stable * ESRD- dialysis as per Nephrology * Back pain- acute on chronic- symptom management- but will decrease discontinue Zanaflez, and decrease Trazodone, and Ativan dose.
[2020-06-01] MEDS: hydrALAZINE 25 MG TAB PO SCH ×2 (12:36→14:20)
[2020-06-01] MEDS: Sevelamer Carbonate 800 MG TAB PO SCH ×3 (12:36→18:16)
[2020-06-01] MEDS: Megestrol Acetate 800 MG/20 ML UDCUP PO SCH (14:04)
[2020-06-01] MEDS: Aspirin 81 mg Enteric Coated Tablet PO SCH (14:04)
[2020-06-01 19:59] VITALS: BP 125/80; TEMP 98.1
--- NOTE | 2020-06-01 20:52 | DIS ---
DATE OF ADMISSION: 05/29/2020 DATE OF DISCHARGE: 06/01/2020 DISCHARGE DISPOSITION: Home. DISCHARGE DIAGNOSES: 1. Syncope. 2. End-stage renal disease, on hemodialysis. 3. Polypharmacy. 4. Hypertension. 5. Chronic low back pain. 6. Hypothyroidism. 7. Diabetes mellitus. 8. Hyperlipidemia. 9. History of dementia. 10. Anxiety. 11. Depression. DISCHARGE MEDICATIONS: 1. Please note that the patient was taken off Zanaflex completely. 2. Trazodone was decreased from 200 to 100 mg at bedtime. 3. Lorazepam was decreased from 1 mg twice a day to 0.5 mg twice daily. 4. Continue Flomax 0.4 mg daily. 5. Mirapex 0.25 mg at bedtime. 6. Nifedipine XL 60 mg 2 tablets daily. 7. Namenda 5 mg p.o. b.i.d. 8. Losartan 100 mg daily. 9. Hydralazine 100 mg t.i.d. 10. Carvedilol 6.25 mg twice daily. 11. Wellbutrin XL 150 mg daily. 12. Lipitor 40 mg at bedtime. IMAGING DONE DURING THE HOSPITAL STAY: The patient had a CT scan of the brain showing no acute abnormalities. The patient had bilateral carotid Dopplers showing no hemodynamically significant stenosis. The patient had a nuclear stress test, which showed no evidence of any ischemic change. The patient had an echocardiogram, in which the ejection fraction was estimated at 55% to 60%. There was some concentric left ventricular hypertrophy. No significant valvular disease. CODE STATUS: Full code. ALLERGIES: NO KNOWN DRUG ALLERGIES. HOSPITAL COURSE: Mr. Rizvi is a pleasant 74-year-old gentleman, who was brought to the emergency room after suffering a syncopal episode. The full details of which are outlined in the history and physical. Given his age and comorbidities, he was placed in observation. He was ruled out. He had a slightly elevated troponin and for this reason, a nuclear stress test was obtained. This was negative for reversible ischemia. He also had an echo and carotid Dopplers, which were essentially negative. There was no evidence of any abnormal rhythms or arrhythmias on his telemetry, during the course of the three days he was in the hospital. He did not have any orthostatic hypotension. It was noted that he is on quite a few sedating medications especially for his age and renal function and for this reason, the trazodone dose was decreased as well as the Ativan and tizanidine was discontinued. He was instructed on the need to make these changes. However, he was a bit reluctant, but I have urged him to make the changes and stated that a note will be sent to his primary care physician as well and since no other obvious cardiac findings were noted, he is being discharged home to have close followup and it is possible that polypharmacy could have contributed to this hospital presentation. Job ID: [id number]
[2020-06-01] MEDS ORDERED: Atorvastatin Calcium 40 MG TAB PO SCH (21:00)
== END 2020-06-01 19:06 | disposition home or self-care (01) | DRG 564 ==
LOC: ERS 12:35 → ERHOLD 15:45 → 2NO 22:06 → 2SW 22:50 → 2NO 05-30 17:18
PROVIDERS: ADMIT Internal Medicine; ATTEND Internal Medicine
PROC: 5A1D70Z Performance of Urinary Filtration, Intermittent, Less than 6 Hours Per Day (ICD-10-PCS; principal; 2020-05-29)
DX: T79.6XXA Traumatic ischemia of muscle, initial encounter (principal); N18.6 End stage renal disease; I13.2 Hypertensive heart and chronic kidney disease with heart failure and with stage 5 chronic kidney disease, or end stage renal disease; E87.2 Acidosis; E87.1 Hypo-osmolality and hyponatremia; Z20.828 Contact with and (suspected) exposure to other viral communicable diseases; R55 Syncope and collapse; T43.215A Adverse effect of selective serotonin and norepinephrine reuptake inhibitors, initial encounter; T42.4X5A Adverse effect of benzodiazepines, initial encounter; T42.8X5A Adverse effect of antiparkinsonism drugs and other central muscle-tone depressants, initial encounter; I50.9 Heart failure, unspecified; N40.0 Benign prostatic hyperplasia without lower urinary tract symptoms; E78.5 Hyperlipidemia, unspecified; M54.5 Low back pain; G89.29 Other chronic pain; E03.9 Hypothyroidism, unspecified; E11.22 Type 2 diabetes mellitus with diabetic chronic kidney disease; F32.9 Major depressive disorder, single episode, unspecified; F41.9 Anxiety disorder, unspecified; M25.512 Pain in left shoulder; E83.39 Other disorders of phosphorus metabolism; W19.XXXA Unspecified fall, initial encounter; F03.90 Unspecified dementia, unspecified severity, without behavioral disturbance, psychotic disturbance, mood disturbance, and anxiety; Z99.2 Dependence on renal dialysis; Z79.899 Other long term (current) drug therapy
CPT/HCPCS: 36415; 36416; 70450; 71045; 78452; 80048; 80053; 80069; 81001; 82550; 82553; 83735; 83880; 84100; 84443; 84484; 85025; 87086; 87635; 90935; 93005; 93017; 93306; 93880; 96360; A9500; G0257; J0153; J1644; J2270; U0003

== ENCOUNTER 2020-07-01 16:57 | Emergency (ER) | payer MEDICARE ==
[2020-07-01 17:53] LABS: #Eosinphils 0.2 thou/uL (0.0-0.7); #Lymphocytes 1.6 thou/uL (1.20-3.40); #Monocytes 0.6 thou/uL (0.11-0.59); #Neutrophils 5.1 thou/uL (1.40-6.50); %Basophils 0.3 % (0.0-1.0); %Eosinophils 2.8 % (0.0-10.0); %Lymphocytes 21.7 % (21.0-51.0); %Neutrophils 67.2 % (42.0-75.0); Hemoglobin 11.4 g/dL (14.0-18.0); Mean Corpuscular HGB CONC 32.5 g/dL (32.0-36.0); Mean Corpuscular Hemoglobin 31.9 pg (27.0-31.0); Mean Corpuscular Volume 98.4 fL (78.0-98.0); Mean Platelet Volume 9.4 fL (7.4-10.4); Platelet Count 143 thou/uL (130-400); RBC Distribution Width 13.8 % (11.5-14.5); Red Blood Cell (RBC) Count 3.58 mill/uL (4.70-6.10); White Blood Cell (WBC) Count 7.6 thou/uL (4.8-10.8)
[2020-07-01] MEDS ORDERED: Cefepime 2 GM VIAL ONE (18:15)
[2020-07-01 18:22] LABS: ALT (SGPT) 25 U/L (8-55); AST (SGOT) 18 U/L (5-34); Albumin 4.1 g/dL (3.4-4.8); Alkaline Phosphatase 130 U/L (40-110); Anion Gap 22 mmol/L (10-20); BUN (Urea Nitrogen) 60 mg/dL (8.4-25.7); Bilirubin, Total 0.4 mg/dL (0.2-1.2); CK (CPK) 36 U/L (30-200); Calc. Creatinine Clearance 0 mL/min (70-130); Calcium 8.7 mg/dL (7.8-10.44); Carbon Dioxide 23 mmol/L (23-31); Chloride 97 mmol/L (98-107); Estimated GFR-MDRD 6; Globulin 3.1 g/dL (2.4-3.5); Glucose 88 mg/dL (83-110); Magnesium 2.3 mg/dL (1.6-2.6); Potassium 4.6 mmol/L (3.5-5.1); Protein, Total 7.2 g/dL (5.8-8.1); Sodium 137 mmol/L (136-145)
[2020-07-01 18:36] LABS: CKMB 1.5 ng/mL (0-6.6)
--- NOTE | 2020-07-01 18:55 | RAD ---
PORTABLE CHEST ONE VIEW: 07/01/20 at 6:32 p.m. HISTORY: Patient on dialysis. Hypertension. COMPARISON: 05/29/20. Heart size is normal. The aorta is tortuous. Right sided dialysis catheter remains in place. The lung s are expanded without lobar consolidation, pneumothoraces, chandan pulmonary edema or pleural effusion s. IMPRESSION: No acute process. POS: OFF
== END 2020-07-01 20:45 | disposition home or self-care (01) ==
LOC: ERS 16:57
DX: I13.2 Hypertensive heart and chronic kidney disease with heart failure and with stage 5 chronic kidney disease, or end stage renal disease (principal); N18.6 End stage renal disease; I50.9 Heart failure, unspecified; E03.9 Hypothyroidism, unspecified; E78.5 Hyperlipidemia, unspecified; F03.90 Unspecified dementia, unspecified severity, without behavioral disturbance, psychotic disturbance, mood disturbance, and anxiety; F41.9 Anxiety disorder, unspecified; F32.9 Major depressive disorder, single episode, unspecified; Z99.2 Dependence on renal dialysis
CPT/HCPCS: 36415; 71045; 80053; 82550; 82553; 83605; 83735; 84484; 85025; 87040; 93005; 94760; 96365; J0692

== ENCOUNTER 2020-07-02 14:04 | Emergency (ER) | payer MEDICARE ==
[2020-07-02 15:17] LABS: #Eosinphils 0.2 thou/uL (0.0-0.7); #Lymphocytes 1.1 thou/uL (1.20-3.40); #Monocytes 0.6 thou/uL (0.11-0.59); #Neutrophils 5.1 thou/uL (1.40-6.50); %Basophils 0.6 % (0.0-1.0); %Lymphocytes 15.8 % (21.0-51.0); %Monocytes 8.2 % (0.0-10.0); %Neutrophils 72.5 % (42.0-75.0); Hemoglobin 9.4 g/dL (14.0-18.0); Mean Corpuscular HGB CONC 33.7 g/dL (32.0-36.0); Mean Corpuscular Hemoglobin 32.7 pg (27.0-31.0); Mean Corpuscular Volume 97.2 fL (78.0-98.0); Mean Platelet Volume 9.7 fL (7.4-10.4); Platelet Count 123 thou/uL (130-400); RBC Distribution Width 13.8 % (11.5-14.5); Red Blood Cell (RBC) Count 2.88 mill/uL (4.70-6.10)
[2020-07-02 15:44] LABS: ALT (SGPT) 24 U/L (8-55); AST (SGOT) 22 U/L (5-34); Albumin 3.5 g/dL (3.4-4.8); Alkaline Phosphatase 115 U/L (40-110); Anion Gap 21 mmol/L (10-20); BUN (Urea Nitrogen) 67 mg/dL (8.4-25.7); Bilirubin, Total 0.4 mg/dL (0.2-1.2); Calc. Creatinine Clearance 0 mL/min (70-130); Calcium 7.3 mg/dL (7.8-10.44); Carbon Dioxide 19 mmol/L (23-31); Chloride 99 mmol/L (98-107); Estimated GFR-MDRD 5; Globulin 2.6 g/dL (2.4-3.5); Glucose 109 mg/dL (83-110); Potassium 4.3 mmol/L (3.5-5.1); Protein, Total 6.1 g/dL (5.8-8.1); Sodium 135 mmol/L (136-145)
== END 2020-07-02 18:15 | disposition home or self-care (01) ==
LOC: ERS 14:04
DX: I95.9 Hypotension, unspecified (principal); E03.9 Hypothyroidism, unspecified; E78.5 Hyperlipidemia, unspecified; I13.2 Hypertensive heart and chronic kidney disease with heart failure and with stage 5 chronic kidney disease, or end stage renal disease; I50.9 Heart failure, unspecified; N18.6 End stage renal disease; F03.90 Unspecified dementia, unspecified severity, without behavioral disturbance, psychotic disturbance, mood disturbance, and anxiety; F32.9 Major depressive disorder, single episode, unspecified; F41.9 Anxiety disorder, unspecified
CPT/HCPCS: 80053; 85025; 93005

== ENCOUNTER 2020-07-28 12:18 | Emergency (ER) | payer MEDICARE ==
[2020-07-28] MEDS ORDERED: Dextrose 50% Abboject 50 ML SYRINGE ONE (12:33)
[2020-07-28 12:53] LABS: #Eosinphils 0.2 thou/uL (0.0-0.7); #Monocytes 0.4 thou/uL (0.11-0.59); #Neutrophils 5.6 thou/uL (1.40-6.50); %Basophils 0.5 % (0.0-1.0); %Eosinophils 2.4 % (0.0-10.0); %Lymphocytes 13.7 % (21.0-51.0); %Neutrophils 77.4 % (42.0-75.0); Hemoglobin 9.9 g/dL (14.0-18.0); Mean Corpuscular HGB CONC 33.1 g/dL (32.0-36.0); Mean Corpuscular Hemoglobin 33.7 pg (27.0-31.0); Mean Platelet Volume 7.8 fL (7.4-10.4); Platelet Count 137 thou/uL (130-400); RBC Distribution Width 16.7 % (11.5-14.5); Red Blood Cell (RBC) Count 2.92 mill/uL (4.70-6.10); White Blood Cell (WBC) Count 7.2 thou/uL (4.8-10.8)
--- NOTE | 2020-07-28 13:19 | CT ---
CT HEAD WITHOUT CONTRAST: Date: 07/28/2020 INDICATION: Fall. COMPARISON: CT scan of 05/29/2020. FINDINGS: There is cortical atrophy. Moderately severe chronic ischemic white matter changes appear stable. No hemorrhage or mass. No evidence of acute infarct. No interval change. Sinuses and mastoids are clear. IMPRESSION: No acute intracranial process. POS: AGW
--- NOTE | 2020-07-28 13:22 | RAD ---
CHEST 1 VIEW PORTABLE: Date: 07/28/2020 HISTORY: Injury from a fall. COMPARISON: 07/01/2020. FINDINGS: Right venous access catheter. Heart size is within normal limits. There is slight blunting of the cos tophrenic angles. Thoracic spine spondylosis with disc osteophytosis. No confluent pneumonia, overt e althea, or pleural effusion. IMPRESSION: No significant acute intrathoracic disease. No pneumothorax or pleural effusion. Stable exam. POS: OFF
[2020-07-28 13:24] LABS: ALT (SGPT) 23 U/L (8-55); AST (SGOT) 36 U/L (5-34); Albumin 3.2 g/dL (3.4-4.8); Alkaline Phosphatase 131 U/L (40-110); Anion Gap 19 mmol/L (10-20); BUN (Urea Nitrogen) 58 mg/dL (8.4-25.7); Bilirubin, Total 0.6 mg/dL (0.2-1.2); CK (CPK) 409 U/L (30-200); Calc. Creatinine Clearance 0 mL/min (70-130); Calcium 8.6 mg/dL (7.8-10.44); Carbon Dioxide 19 mmol/L (23-31); Chloride 94 mmol/L (98-107); Estimated GFR-MDRD 5; Globulin 2.6 g/dL (2.4-3.5); Glucose 375 mg/dL (83-110); Potassium 4.2 mmol/L (3.5-5.1); Protein, Total 5.8 g/dL (5.8-8.1); Sodium 128 mmol/L (136-145)
--- NOTE | 2020-07-28 13:39 | CT ---
CT CERVICAL SPINE: 07/28/20 INDICATIONS: Fall with neck injury. COMPARISON: Comparison is made to CT cervical spine from 12/17/18. There are degenerative changes of the cervical spine most prominent at the C5-6 and C6-7 levels. Ante rior osteophytes with mild anterior wedging at these vertebrae again noted. Posterior spondylosis at these levels again seen with prominent spurring seen posteriorly at C6-7 encroaching into the spinal canal. This produces mild cord compression at C6-7. There is also prominent spondylosis at C4-5 which produces mild cord compression and foraminal stenosis on the right. There is no evidence of acute fracture. IMPRESSION: Degenerative changes in the cervical spine again noted as described. No acute fracture identified. POS: AGW
== END 2020-07-28 15:49 | disposition home or self-care (01) ==
LOC: ERS 12:18
DX: S00.03XA Contusion of scalp, initial encounter (principal); E03.9 Hypothyroidism, unspecified; E78.5 Hyperlipidemia, unspecified; I13.2 Hypertensive heart and chronic kidney disease with heart failure and with stage 5 chronic kidney disease, or end stage renal disease; N18.6 End stage renal disease; I50.9 Heart failure, unspecified; E16.2 Hypoglycemia, unspecified; Z99.2 Dependence on renal dialysis; F03.90 Unspecified dementia, unspecified severity, without behavioral disturbance, psychotic disturbance, mood disturbance, and anxiety; F41.9 Anxiety disorder, unspecified; F32.9 Major depressive disorder, single episode, unspecified; Z79.899 Other long term (current) drug therapy; W19.XXXA Unspecified fall, initial encounter
CPT/HCPCS: 36415; 36416; 70450; 71045; 72125; 80053; 82550; 85025; 93005; 96374

== ENCOUNTER 2021-02-01 14:55 | Inpatient (IN) | payer MEDICARE ==
[2021-02-01 15:28] LABS: #Basophils 0.1 thou/uL (0.0-0.2); #Eosinphils 0.4 thou/uL (0.0-0.7); #Lymphocytes 1.4 thou/uL (1.20-3.40); #Monocytes 0.6 thou/uL (0.11-0.59); #Neutrophils 5.7 thou/uL (1.40-6.50); %Basophils 0.8 % (0.0-1.0); %Eosinophils 4.6 % (0.0-10.0); %Lymphocytes 17.1 % (21.0-51.0); %Monocytes 6.8 % (0.0-10.0); %Neutrophils 70.6 % (42.0-75.0); Hemoglobin 10.2 g/dL (14.0-18.0); Mean Corpuscular HGB CONC 32.4 g/dL (32.0-36.0); Mean Corpuscular Hemoglobin 31.9 pg (27.0-31.0); Mean Corpuscular Volume 98.5 fL (78.0-98.0); Mean Platelet Volume 8.2 fL (7.4-10.4); Platelet Count 167 thou/uL (130-400); RBC Distribution Width 14.6 % (11.5-14.5); Red Blood Cell (RBC) Count 3.19 mill/uL (4.70-6.10); White Blood Cell (WBC) Count 8.1 thou/uL (4.8-10.8)
[2021-02-01 15:48] LABS: ALT (SGPT) 29 U/L (8-55); AST (SGOT) 28 U/L (5-34); Albumin 3.1 g/dL (3.4-4.8); Alkaline Phosphatase 184 U/L (40-110); Anion Gap 20 mmol/L (10-20); BUN (Urea Nitrogen) 42 mg/dL (8.4-25.7); Bilirubin, Total 0.3 mg/dL (0.2-1.2); Calc. Creatinine Clearance 0 mL/min (70-130); Calcium 8.6 mg/dL (7.8-10.44); Carbon Dioxide 21 mmol/L (23-31); Chloride 100 mmol/L (98-107); Globulin 3.7 g/dL (2.4-3.5); Glucose 110 mg/dL (83-110); Potassium 4.1 mmol/L (3.5-5.1); Protein, Total 6.8 g/dL (5.8-8.1); Sodium 137 mmol/L (136-145)
[2021-02-01 16:44] LABS: CKMB 1.2 ng/mL (0-6.6)
[2021-02-01 20:56] VITALS: BMI 21.2
[2021-02-01] MEDS ORDERED: Dextrose 5% in Water 1,000 ML IV PRN (21:37)
[2021-02-01] MEDS ORDERED: Dextrose 50% Abboject 50 ML SYRINGE SLOW IVP PRN (21:37)
[2021-02-01 21:45] LABS: CRP (Inflammatory) 7.34 mg/dL (= or < 0.5); Magnesium 1.9 mg/dL (1.6-2.6)
[2021-02-01 22:12] LABS: Actual Bicarbonate (HCO3a) 27.7 mEq/L (22-28); Analyzer IN Cardio ER; Base Excess (BEa) 1.4 mEq/L (-2.0 to +3.0); CO2 Tension 51.6 mmHg (35.0-45.0); Carboxyhemoglobin (COHb) 0.7 gm% (0.0-3.0); Hemoglobin (Hb) 10.7 g/dL (14.0-18.0); Potassium - ABG Lab 4.52 mmol/L (3.70-5.30); pH, Arterial 7.35 (7.35-7.45)
[2021-02-01 22:13] LABS: CKMB 13.3 ng/mL (0-6.6)
[2021-02-01 22:17] LABS: O2 Tension (PaO2), arterial 54.8 mmHg (> 70.0)
[2021-02-01 22:43] LABS: Free T4 (Free Thyroxine) 0.84 ng/dL (0.70-1.48); Thyroid Stimulating Hormone 0.4428 uIU/mL (0.35-4.94)
[2021-02-02 01:19] LABS: CKMB 14.1 ng/mL (0-6.6)
[2021-02-02] MEDS ORDERED: Aspirin 325 mg Enteric Coated Tablet PO SCH (01:45)
[2021-02-02 04:13] LABS: #Basophils 0.1 thou/uL (0.0-0.2); #Eosinphils 0.4 thou/uL (0.0-0.7); #Lymphocytes 1.6 thou/uL (1.20-3.40); #Monocytes 0.5 thou/uL (0.11-0.59); #Neutrophils 4.7 thou/uL (1.40-6.50); %Basophils 0.8 % (0.0-1.0); %Eosinophils 5.2 % (0.0-10.0); %Monocytes 6.7 % (0.0-10.0); %Neutrophils 65.2 % (42.0-75.0); Hemoglobin 10.1 g/dL (14.0-18.0); Mean Corpuscular HGB CONC 32.7 g/dL (32.0-36.0); Mean Corpuscular Hemoglobin 32.1 pg (27.0-31.0); Mean Corpuscular Volume 98.1 fL (78.0-98.0); Mean Platelet Volume 8.2 fL (7.4-10.4); Platelet Count 164 thou/uL (130-400); RBC Distribution Width 14.6 % (11.5-14.5); Red Blood Cell (RBC) Count 3.16 mill/uL (4.70-6.10); White Blood Cell (WBC) Count 7.2 thou/uL (4.8-10.8)
[2021-02-02 04:33] LABS: Anion Gap 20 mmol/L (10-20); BUN (Urea Nitrogen) 49 mg/dL (8.4-25.7); Calc. Creatinine Clearance 6 mL/min (70-130); Carbon Dioxide 23 mmol/L (23-31); Chloride 99 mmol/L (98-107); Glucose 97 mg/dL (83-110); Potassium 4.5 mmol/L (3.5-5.1); Sodium 137 mmol/L (136-145)
[2021-02-02] MEDS: Carvedilol 6.25 MG TAB PO SCH ×2 (08:28→20:38)
[2021-02-02] MEDS: Bupropion 150 MG XL TAB PO SCH (08:28)
[2021-02-02] MEDS: Sevelamer Carbonate 800 MG TAB PO SCH ×3 (08:28→20:38)
[2021-02-02] MEDS ORDERED: Pantoprazole 40 MG GRANULES PACKET PO SCH (09:00)
[2021-02-02] MEDS ORDERED: Heparin 10,000 UNITS/ 10 ML VIAL ONE (10:41)
[2021-02-02] MEDS: Atorvastatin Calcium 40 MG TAB PO SCH (20:38)
[2021-02-02] MEDS ORDERED: FLU VACC QS2020-21(65YR UP)/PF 240 MCG/0.7 ML SYRINGE IM ONE (21:00)
[2021-02-03] MEDS: Sevelamer Carbonate 800 MG TAB PO SCH ×3 (09:16→21:04)
[2021-02-03] MEDS: Carvedilol 6.25 MG TAB PO SCH ×2 (09:16→21:05)
[2021-02-03] MEDS: Bupropion 150 MG XL TAB PO SCH (09:16)
[2021-02-03 11:51] LABS: #Basophils 0.1 thou/uL (0.0-0.2); #Eosinphils 0.4 thou/uL (0.0-0.7); #Lymphocytes 1.5 thou/uL (1.20-3.40); #Monocytes 0.7 thou/uL (0.11-0.59); #Neutrophils 5.4 thou/uL (1.40-6.50); %Basophils 0.9 % (0.0-1.0); %Eosinophils 5.3 % (0.0-10.0); %Lymphocytes 18.6 % (21.0-51.0); %Monocytes 8.8 % (0.0-10.0); %Neutrophils 66.3 % (42.0-75.0); Hemoglobin 11.6 g/dL (14.0-18.0); Mean Corpuscular HGB CONC 31.3 g/dL (32.0-36.0); Mean Corpuscular Volume 98.8 fL (78.0-98.0); Mean Platelet Volume 8.2 fL (7.4-10.4); Platelet Count 171 thou/uL (130-400); RBC Distribution Width 14.6 % (11.5-14.5); Red Blood Cell (RBC) Count 3.74 mill/uL (4.70-6.10); White Blood Cell (WBC) Count 8.1 thou/uL (4.8-10.8)
[2021-02-03 12:11] LABS: Anion Gap 16 mmol/L (10-20); BUN (Urea Nitrogen) 27 mg/dL (8.4-25.7); Calc. Creatinine Clearance 10 mL/min (70-130); Calcium 9.1 mg/dL (7.8-10.44); Carbon Dioxide 26 mmol/L (23-31); Chloride 99 mmol/L (98-107); Glucose 95 mg/dL (83-110); Potassium 4.1 mmol/L (3.5-5.1); Sodium 137 mmol/L (136-145)
[2021-02-03] MEDS ORDERED: Losartan 25 MG TAB PO SCH ×2 (13:00→21:00)
[2021-02-03] MEDS ORDERED: NIFEdipine XL 30 MG TAB PO SCH (13:00)
[2021-02-03] MEDS ORDERED: traZODone HCl 50 MG TAB PO PRN (16:17)
[2021-02-03] MEDS: hydrALAZINE 25 MG TAB PO SCH (21:04)
[2021-02-03] MEDS: Atorvastatin Calcium 40 MG TAB PO SCH (21:04)
[2021-02-04] MEDS ORDERED: Polyethylene Glycol 3350 17 GM Packet PO SCH (09:00)
[2021-02-04] MEDS: hydrALAZINE 25 MG TAB PO SCH (09:00)
[2021-02-04] MEDS ORDERED: Pramipexole Di-HCl 0.25 MG TAB PO SCH (09:00)
[2021-02-04] MEDS ORDERED: Cholecalciferol 1,000 UNITS (25 MCG) TAB PO SCH (09:00)
[2021-02-04] MEDS ORDERED: NIFEdipine XL 60 MG TAB PO SCH (09:00)
[2021-02-04] MEDS ORDERED: Albumin 25% 25 GM/100 ML BOT IVPB SCH (09:13)
[2021-02-04] MEDS: Sevelamer Carbonate 800 MG TAB PO SCH ×3 (10:14→16:25)
[2021-02-04] MEDS: Carvedilol 6.25 MG TAB PO SCH (11:02)
[2021-02-04] MEDS ORDERED: Heparin 10,000 UNITS/ 10 ML VIAL ONE (11:43)
[2021-02-04] MEDS: Bupropion 150 MG XL TAB PO SCH (14:27)
[2021-02-04 15:45] VITALS: BP 136/73; TEMP 98.8
== END 2021-02-04 18:14 | DRG 314 ==
LOC: ERS 14:55 → 3SE 17:54 → IMCU/EMU 23:45 → OBSVTOIN 02-02 10:13 → T4-A 02-02 16:53
PROVIDERS: ADMIT Internal Medicine; ATTEND Internal Medicine
PROC: 5A1D70Z Performance of Urinary Filtration, Intermittent, Less than 6 Hours Per Day (ICD-10-PCS; principal; 2021-02-02)
PROC: 5A1D70Z Performance of Urinary Filtration, Intermittent, Less than 6 Hours Per Day (ICD-10-PCS; 2021-02-04)
DX: I95.9 Hypotension, unspecified (principal); G93.41 Metabolic encephalopathy; I13.2 Hypertensive heart and chronic kidney disease with heart failure and with stage 5 chronic kidney disease, or end stage renal disease; J98.11 Atelectasis; E87.2 Acidosis; I50.32 Chronic diastolic (congestive) heart failure; D63.1 Anemia in chronic kidney disease; E78.2 Mixed hyperlipidemia; E11.22 Type 2 diabetes mellitus with diabetic chronic kidney disease; E03.9 Hypothyroidism, unspecified; E87.70 Fluid overload, unspecified; F03.90 Unspecified dementia, unspecified severity, without behavioral disturbance, psychotic disturbance, mood disturbance, and anxiety; F32.9 Major depressive disorder, single episode, unspecified; F41.9 Anxiety disorder, unspecified; I25.10 Atherosclerotic heart disease of native coronary artery without angina pectoris; R40.0 Somnolence; Z95.5 Presence of coronary angioplasty implant and graft; Z79.899 Other long term (current) drug therapy; Z88.8 Allergy status to other drugs, medicaments and biological substances; Z79.891 Long term (current) use of opiate analgesic; Z95.1 Presence of aortocoronary bypass graft; Z98.890 Other specified postprocedural states; Z99.2 Dependence on renal dialysis
CPT/HCPCS: 36415; 36416; 70450; 71045; 80048; 80053; 82140; 82550; 82553; 82805; 83605; 83735; 83880; 84439; 84443; 84481; 84484; 85025; 86140; 90935; 93005; 94660; 96374; G0257; G0378; J1644